=== PATIENT | female | born 1940 | race Caucasian/White ===

== ENCOUNTER 2021-01-10 23:28 | Inpatient (IN) | payer OTHER ==
[~2021-01-10] VITALS: Ht 152.4 cm; Wt 55.8 kg
--- NOTE | 2021-01-10 23:31 | NUR ---
PT AAOX1. ROSLYN SPEAKING BIBRA 39 FROM HOME FOR SOB X90 MIN WAXER. +COUGH. PLACED IN BED 8 ON HAT BRIM CURLER AND PULSE OX. PER ARRIVAL ON 12L NR. SAT HIGH 90'S. AWAITING ER MD FOR EVAL AND ORDERS.
--- NOTE | 2021-01-10 23:55 | NUR ---
ANDRESID SWABBED, SENT TO LAB.
--- NOTE | 2021-01-10 23:55 | NUR ---
xray at bedside
--- NOTE | 2021-01-10 23:56 | NUR ---
lab at bedside
[2021-01-11] MEDS ORDERED: HYDR-4077 PO (00:20)
[2021-01-11] MEDS ORDERED: MEMA21CA2 PO (00:20)
[2021-01-11] MEDS ORDERED: OLME20TA13 PO (00:20)
[2021-01-11] MEDS ORDERED: GABA-532 PO (00:20)
[2021-01-11] MEDS ORDERED: RISP0.2515 PO (00:20)
[2021-01-11] MEDS ORDERED: MECL-159 PO (00:20)
[2021-01-11] MEDS ORDERED: DILT180C93 PO (00:20)
[2021-01-11] MEDS ORDERED: CEFTRIAXONE 1GM BAG (ER ONLY) 1 GM/50 ML PIGGYBACK IV ONE (00:30)
[2021-01-11] MEDS ORDERED: ACETAMINOPHEN 650 MG/SUPP.RECT RC ONE ×2 (00:30→00:36)
[2021-01-11] MEDS ORDERED: AZITHROMYCIN 500 MG in IV D5W 250 ML IV ONE (00:30)
[2021-01-11] MEDS ORDERED: CEFTRIAXONE 1GM BAG (ER ONLY) 50 ML IV ONE (00:36)
[2021-01-11] MEDS ORDERED: AZITHROMYCIN 500 MG VIAL ONE (00:37)
[2021-01-11 00:40] LABS: BASOPHILS % (AUTO) 0.7 % (0.0-2.0); EOSINOPHILS % (AUTO) 1.5 % (0.0-6.0); HEMATOCRIT 41 % (33-45); HEMOGLOBIN 13.2 g/dL (11.5-14.8); MEAN CORPUSCULAR HGB CONC 32 g/dl (31.0-36.0); MEAN CORPUSCULAR VOLUME 91 fL (82-100); MONOCYTES # (AUTO) 0.7 K/uL (0.1-1.30); MONOCYTES % (AUTO) 13.7 % (2.0-12.0); NEUTROPHILS # (AUTO) 3.1 K/uL (1.8-8.9); NEUTROPHILS % (AUTO) 63.1 % (43.0-81.0); PLATELET COUNT (AUTO) 269 K/uL (150-450); RED BLOOD CELL COUNT(AUTO) 4.47 MIL/uL (4.0-5.2); WHITE BLOOD COUNT (AUTO) 4.9 K/uL (4.3-11.0)
[2021-01-11 01:05] LABS: ALANINE AMINOTRANSFERASE 18 U/L (12-78); ALBUMIN 3.6 g/dL (3.4-5.0); ALKALINE PHOSPHATASE 71 U/L (46-116); ASPARTATE AMINOTRANSFERASE 18 U/L (15-37); BILIRUBIN,DIRECT 0.1 mg/dL (0.0-0.2); BILIRUBIN,TOTAL 0.5 mg/dL (0.2-1.0); CALCIUM, SERUM 9.1 mg/dL (8.5-10.1); CARBON DIOXIDE 26 mmol/L (21-32); CHLORIDE 104 mmol/L (98-107); CREATININE 1.2 mg/dL (0.6-1.3); GLUCOSE 109 mg/dL (74-106); POTASSIUM 3.5 mmol/L (3.5-5.1); SODIUM SERUM 139 mmol/L (136-145); UREA NITROGEN, BLOOD 23 mg/dL (7-18)
[2021-01-11 01:31] LABS: BILIRUBIN,URINE SMALL (NEGATIVE); COLOR,URINE YELLOW (YELLOW); LEUKOCYTE ESTERASE ,URINE MODERATE (NEGATIVE); NITRITE, URINE NEGATIVE (NEGATIVE); PH,URINE 5.5 (5.0-8.0); PROTEIN,URINE 30 mg/dl (NEGATIVE); UGLUCOSE NEGATIVE (NEGATIVE); UROBILINOGEN,URINE 0.2 EU/dL (0.2)
--- NOTE | 2021-01-11 01:41 | NUR ---
PT PLACED BACK ON NR. SAAT 90'S.
[2021-01-11] MEDS ORDERED: methylPREDNISolone SOD SUCC 125 MG/2ML VIAL ONE (02:08)
--- NOTE | 2021-01-11 02:09 | NUR ---
CALLED RT FOR BREATHING TREATMENT.
[2021-01-11] MEDS ORDERED: ALBUTEROL FS 2.5 MG/0.5 ML VIAL.NEB ONE (02:14)
[2021-01-11] MEDS ORDERED: methylPREDNISolone SOD SUCC 125 MG/2ML VIAL IV ONE (02:30)
[2021-01-11] MEDS ORDERED: ALBUTEROL FS 2.5 MG/0.5 ML VIAL.NEB NEB ONE (02:30)
--- NOTE | 2021-01-11 04:06 | NUR ---
PANEL PAGED PER DR HAND.
[2021-01-11] MEDS ORDERED: ENOXAPARIN SODIUM 40 MG/0.4 ML DISP.SYRIN SQ SCH (05:00)
[2021-01-11] MEDS ORDERED: HYDROCODONE/APAP 5/325MG TABLET PO PRN (05:00)
[2021-01-11] MEDS ORDERED: ACETAMINOPHEN 325 MG TABLET PO PRN (05:00)
[2021-01-11] MEDS ORDERED: Z GUARD REMEDY 2 OZ OINT TP PRN (05:00)
[2021-01-11] MEDS ORDERED: ZOLPIDEM TARTRATE 5 MG TABLET PO PRN (05:00)
[2021-01-11] MEDS ORDERED: MAGNESIUM HYDROXIDE 30 ML UDC PO PRN (05:00)
[2021-01-11] MEDS ORDERED: ONDANSETRON HCL/PF 4 MG/2 ML VIAL IVP PRN (05:00)
[2021-01-11] MEDS ORDERED: MAG HYDROX/AL HYDROX/SIMETH 30 ML UDC PO PRN (05:00)
[2021-01-11] MEDS ORDERED: PIPERACILLIN /TAZOBACTAM 3.375 G in IV D5W 50 ML IV SCH (06:00)
[2021-01-11 06:16] LABS: BACTERIA,URINE Many /HPF (None Seen); RBC,URINE 0-2 /HPF (0-2); SQUAMOUS EPITHELIAL CELL,UR Few /HPF (None Seen); WBC,URINE TOO NUMEROUS TO COUN /HPF (0-3)
--- NOTE | 2021-01-11 06:43 | NUR ---
PT RESTING COMFORTABLY. VSS.
--- NOTE | 2021-01-11 07:10 | NUR ---
RECEIVED REPORT FROM KASEY BRIONES FOR ALEX. PT IS AAOX1, ON NON RB AT 15 LPM, V/S STABLE, KEPT RESTED AND COMFORTABLE. WILL CONTINUE TO MONITOR.
--- NOTE | 2021-01-11 07:22 | NUR ---
PT SWITCHED TO SIMPLE MASK AT 8LPM. O2 SAT AT 97%.
[2021-01-11] MEDS ORDERED: PIPERACILLIN /TAZOBACTAM 3.375 G VIAL IV ONE (07:30)
[2021-01-11] MEDS ORDERED: PANTOPRAZOLE 40 MG TABLET.DR PO SCH (07:30)
--- NOTE | 2021-01-11 07:30 | NUR ---
FIRESTOP/CONTAINMENT WORKER NOTES RECEIVED PT FROM ER, DX UTI BY DR. JOVON AMBRIZ, AO X 1, CONFUSED FORGETFUL, FOLLOWS SIMPLE COMMANDS, UNABLE TO EXPRESS SELF COMPLETELY, ON 8L O2 SIMPLE MASK, O2 SAT 97-98%, SINUS RHYTHM 92 HR. DENIES CHEST DISCOMFORT, IV ACCESS ON RT AC 20G, FLUSHES WELL, SITE CLEAR. SKIN INTACT. UNIT ORIENTATION DONE, UNABLE TO UNDERSTAND, NEEDS CONSTANT COACHINGS, BED LOW LOCKED, SR UP X 2, CALL LIGHT WITHIN REACH. WILL CONT TO MONITOR.
--- NOTE | 2021-01-11 07:55 | NUR ---
REPORT GIVEN TO KASEY LOBO FOR ALEX.
[2021-01-11] MEDS ORDERED: PIPERACILLIN /TAZOBACTAM 3.375 G in IV D5W 50 ML IV ONE (08:00)
[2021-01-11 08:30] VITALS: BP 126/83
[2021-01-11] MEDS: ENOXAPARIN SODIUM 30 MG/0.3 ML DISP.SYRIN SQ SCH (09:33)
[2021-01-11] MEDS: IV NS 0.9% 1,000 ML IV PRN (09:33)
[2021-01-11] MEDS ORDERED: DILTIAZEM HCL CD 180 MG PO SCH (10:00)
[2021-01-11] MEDS ORDERED: LOSARTAN POTASSIUM 50 MG TABLET PO SCH (10:00)
--- NOTE | 2021-01-11 10:33 | NUR ---
GAUGE AND WEIGH MACHINE ADJUSTER NOTES DR. ALLEN NOTIFIED THAT PT'S GRAND DAUGHTER WISHES TO TALK TO HER.
[2021-01-11] MEDS: VANCOMYCIN 0.75 GM in IV D5W 250 ML IV SCH (11:51)
[2021-01-11 12:00] VITALS: BP 130/81
--- NOTE | 2021-01-11 13:51 | NUR ---
RN NOTES RECEIVED A CALL FROM LALA GRAND DAUGHTER, STATED THAT SHE TALKED TO HER DAD AND THEY AGREED THAT PATIENT TO BE DNR/DNI. ALSO THEY INFORMED CASE MANAGMENT WELL DR ALLEN NOTIFIED
--- NOTE | 2021-01-11 15:10 | NUR ---
RN NOTES DR. ALLEN NOTIFIED, PATIENT KEEPS ON REMOVING MASK AND TRYING TO PULL IV. SOFT WRIST RESTRAINTS ORDERED. WILL CHECK Q 2 HOURS.
[2021-01-11 16:00] VITALS: BP 125/69
--- NOTE | 2021-01-11 18:31 | NUR ---
OPERATING ROOM NURSE CLOSING NOTES PT IN BED, RESTING, AO X 1, CONFUSED FORGETFUL, FOLLOWS SIMPLE COMMANDS, UNABLE TO EXPRESS SELF COMPLETELY, ON 8L O2 SIMPLE MASK, O2 SAT 97-98%, AFIB HR 110s-120s, AWARE. DENIES CHEST DISCOMFORT, IV ACCESS ON RT AC 20G, WITH NS AT 75 ML/HR, SITE CLEAR. PUREED DIET, FOR SWALLOW EVAL, REFUSE TO EAT. ECHAVARRIA CATH IN PLACE, TEA COLORED URINE, 1L OUTPUT, NEEDS CONSTANT COACHING, BED LOW LOCKED, SR UP X 2, CALL LIGHT WITHIN REACH. WILL ENDORSE TO NEXT SHIFT FOR ALEX. Addendum: 01/11/21 at 1837 by SHAINA DAS RN ADDENDUM: RESTRAINTS RELEASED AND CHECKED FOR CIRCULATION Q 2 HOURS. TURNED AND REPOSITIONED Q 2 HOURS. PM CARE DONE EARLIER.
--- NOTE | 2021-01-11 19:51 | NUR ---
RN NOTE RECEIVED PATIENT IN BED, AWAKE, RESPONSIVE. AOX1. BREATHING EVEN AND UNLABORED AT THIS TIME. NOTED TO BE ON SIMPLE FACE MASK AT 8L/MIN SATURATING AT 95 PERCENT. PATIENT ON TELEMETRY MONITORING WITH HR OF 130'S. NOTED WITH RIGHT FOREARM 20G, RUNNING NS AT 75 CC/HR. NO INFILTRATION NOTED. NO BLEEDING. NOTED WITH BILATERAL SOFT WRIST RESTRAINTS. CAPILLARY REFILL WNL. NOTED WITH ECHAVARRIA CATHETER. NO BLEEDING NOTED DRAINING YELLOW URINE. NO HEMATURIA NOTED. BED LOW, IN LOCKED POSITION. CALL LIGHT WITHIN REACH.
[2021-01-11] MEDS: PIPERACILLIN /TAZOBACTAM 3.375 G in IV D5W 100 ML IV SCH (20:27)
[2021-01-12] VITALS: BP 137/90
[2021-01-12 04:00] VITALS: BP 145/103
[2021-01-12] MEDS: IV NS 0.9% 1,000 ML IV PRN (05:28)
[2021-01-12 06:53] LABS: BASOPHILS % (AUTO) 0.1 % (0.0-2.0); HEMATOCRIT 39 % (33-45); HEMOGLOBIN 13.2 g/dL (11.5-14.8); LYMPHOCYTES # (AUTO) 0.5 K/uL (0.8-4.8); MEAN CORPUSCULAR HGB CONC 34 g/dl (31.0-36.0); MEAN CORPUSCULAR VOLUME 89 fL (82-100); MONOCYTES # (AUTO) 0.8 K/uL (0.1-1.30); MONOCYTES % (AUTO) 6.9 % (2.0-12.0); NEUTROPHILS # (AUTO) 10.2 K/uL (1.8-8.9); PLATELET COUNT (AUTO) 326 K/uL (150-450); RED BLOOD CELL COUNT(AUTO) 4.41 MIL/uL (4.0-5.2); WHITE BLOOD COUNT (AUTO) 11.5 K/uL (4.3-11.0)
--- NOTE | 2021-01-12 07:30 | NUR ---
COST ESTIMATOR AM NOTES RECEIVED PT IN BED, OPENS EYES, AO X 1, CONFUSED FORGETFUL, FOLLOWS SIMPLE COMMANDS, UNABLE TO EXPRESS SELF COMPLETELY, ON 8L O2 SIMPLE MASK, O2 SAT 95%, AFIB CONTR HR 88. DENIES CHEST DISCOMFORT, IV ACCESS ON RT AC 20G, WITH NS AT 75 ML/HR INFUSING WELL, SITE CLEAR. ECHAVARRIA CAT IN PLACE, DRAINING YELLOW COLORED URINE. SKIN INTACT. PUREED DIET, POC DISCUSSED, UNABLE TO UNDERSTAND, NEEDS CONSTANT COACHINGS, BILAT SOFTWRIST RESTRAIN IN PLACE, RELEASED, CHECKED FOR CIRCULATION THEN Q 2 HOURS. BED LOW LOCKED, SR UP X 2, CALL LIGHT WITHIN REACH. WILL CONT TO MONITOR. PER SHOE SHANKER, REFUSED ORAL INTAKE.
[2021-01-12 07:48] LABS: CALCIUM, SERUM 9.3 mg/dL (8.5-10.1); PHOSPHORUS 3.6 mg/dL (2.5-4.9); POTASSIUM 4.4 mmol/L (3.5-5.1)
[2021-01-12 07:49] LABS: THYROID STIMULATING HORMONE 0.444 uIU/mL (0.358-3.74)
[2021-01-12 08:01] VITALS: BP 102/66
[2021-01-12] MEDS: PANTOPRAZOLE 40 MG VIAL IV SCH (08:27)
[2021-01-12] MEDS: PIPERACILLIN /TAZOBACTAM 3.375 G in IV D5W 100 ML IV SCH ×2 (08:27→20:17)
[2021-01-12] MEDS: ENOXAPARIN SODIUM 30 MG/0.3 ML DISP.SYRIN SQ SCH (08:28)
--- NOTE | 2021-01-12 09:30 | NUR ---
RN NOTES DUE MEDS GIVEN. PATIENT PLACED NOW ON 6L O2 NASAL CANULA. TOLERATING WELL. O2 SAT AT 96%
[2021-01-12] MEDS: VANCOMYCIN 0.75 GM in IV D5W 250 ML IV SCH (11:41)
[2021-01-12] MEDS: DIGOXIN INJ 0.5 MG/2 ML AMPUL IV SCH ×2 (11:42→17:34)
[2021-01-12 12:00] VITALS: BP 128/90
[2021-01-12 16:00] VITALS: BP 150/90
--- NOTE | 2021-01-12 18:26 | NUR ---
RELIABILITY TECHNOLOGIST CLOSING NOTES PT IN BED, RESTING, AO X 3, [place] SPEAKING. ON 4L NASAL CANULA, O2 SAT 95-98%, SINUS RHYTHM DENIES CHEST DISCOMFORT, IV ACCESS ON RT AC 18G AND LFA 20G BOTH FLUSHES WELL, BOTH SITES CLEAR. ECHAVARRIA CATH IN PLACE, ADEQUATE URINE OUTPUT TOTAL 600 ML. BED LOW LOCKED, SR UP X 2, CALL LIGHT WITHIN REACH. ALL NEEDS MET. WILL ENDORSE TO NEXT SHIFT FOR ALEX. Addendum: 01/12/21 at 1829 by SHAINA DAS RN CORRECTION: DISREGARD THIS DOCUMENTATION INTENDED FOR ANOTHER PATIENT.
--- NOTE | 2021-01-12 18:30 | NUR ---
STRAIGHTEDGE MAN CLOSING NOTES PT IN BED, RESTING, AO X 1, CONFUSED FORGETFUL, FOLLOWS SIMPLE COMMANDS, UNABLE TO EXPRESS SELF COMPLETELY, ON 8L O2 SIMPLE MASK, O2 SAT 97-98%, AFIB HR 110s-120s, AWARE. DENIES CHEST DISCOMFORT, IV ACCESS ON RT AC 20G, WITH NS AT 75 ML/HR, SITE CLEAR. PUREED DIET, REFUSE TO EAT. ECHAVARRIA CATH IN PLACE, TEA COLORED URINE, 850 ML OUTPUT, NEEDS CONSTANT COACHING, BED LOW LOCKED, SR UP X 2, CALL LIGHT WITHIN REACH. WILL ENDORSE TO NEXT SHIFT FOR ALEX. RESTRAINTS RELEASED AND CHECKED FOR CIRCULATION Q 2 HOURS. TURNED AND REPOSITIONED Q 2 HOURS. PM CARE DONE EARLIER. ALL NEEDS MET.
--- NOTE | 2021-01-12 19:10 | NUR ---
RN NOTES RECEIVED REPORT FROM MORNING NURSE. PATIENT A/O X1 ABLE TO FOLLOW SIMPLE COMMAND. NO SOB NO DISTRESS NOTED. WITH IV ACCESS AT RFA G# 20 PATENT FLUSHES WELL, WITH ONGOING IVF PNS @75 CC HOUR. WITH OXYGEN INHALATION AT 6LPM VIA NC TOLERATING WELL SATING 94%. WITH ECHAVARRIA CATHETER CONNECTED TO URINE BAG DRAINING YELLOWISH URINE. WITH BILATERAL SOFT RESTRAINTS IN PLACE. ALL SAFETY MEASURES IN PLACE AT ALL TIMES. HOB ELEVATED. BED ON LOWEST POSITION AND LOCKED. CALL LIGHT WITHIN REACH. WILL CONTINUE TO MONITOR
[2021-01-12 20:00] VITALS: BP 172/93
--- NOTE | 2021-01-12 21:00 | NUR ---
RN NOTES BP 172/[address] LEVY WAITING FOR HIS CALL BACK. PATIENT COMFORTABLE IN BED. WILL CONTINUE TO MONITOR THE PATIENT
--- NOTE | 2021-01-12 21:30 | NUR ---
RN NOTES DR LEVY ORDERED LOSARTAN 50 MG NOW THEN 50 MG QD NOTED AND CARRIED OUT
--- NOTE | 2021-01-12 22:15 | NUR ---
RN NOTES CHASTITYRTLEXUS GIVEN, REPEAT BP 153/84 HR 130'S. WILL CONTINUE TO MONITOR THE PATIENT
[2021-01-12] MEDS ORDERED: LOSARTAN POTASSIUM 50 MG TABLET PO SCH (22:30)
[2021-01-13] VITALS: BP 159/92
[2021-01-13] MEDS: DIGOXIN INJ 0.5 MG/2 ML AMPUL IV SCH (00:13)
--- NOTE | 2021-01-13 00:20 | NUR ---
RN NOTES NOTED PATIENT HR 140'S, O2 SAT 88 PLACE PATIENT IN NON REBREATER MASK BP 153/90. PAGED DR JOVON LEVY.
--- NOTE | 2021-01-13 00:30 | NUR ---
RN NOTES DR LEVY ORDERED TO START AMIODARONE DRIP 1MG/MIN X 6 HOURS NO LOADING DOSE.
[2021-01-13] MEDS ORDERED: AMIODARONE 150 MG/3 ML VIAL IV ONE ×2 (00:35→00:37)
[2021-01-13] MEDS: AMIODARONE 450 MG in IV D5W 241 ML IV PRN ×2 (00:49→08:13)
--- NOTE | 2021-01-13 02:30 | NUR ---
RN NOTES PATIENT BP 150/89 HR99 O2 SAT 97% PATIENT ASLEEP NO DISTRESS. WILL CONTINUE TO MONITOR.
[2021-01-13] MEDS: IV NS 0.9% 1,000 ML IV PRN ×2 (02:41→20:15)
--- NOTE | 2021-01-13 03:00 | NUR ---
RN NOTES PATIENT BP 169/92 HR 120'S-130'S O2 SAT 93% ON NON REBREATHER MASK. PATIENT AWAKE. STILL ON AMIODARONE DRIP 1MG/MIN. WILL CONTINUE TO MONITOR CLOSELY.
[2021-01-13 04:00] VITALS: BP 169/95
--- NOTE | 2021-01-13 04:00 | NUR ---
RN NOTES PATIENT BP 170/95, HR 120, O2 SAT 94%. PATIENT COMFORTABLE IN BED. WILL CONTINUE TO MONITOR THE PATIENT
--- NOTE | 2021-01-13 05:00 | NUR ---
RN NOTES PATIENT BP 169/95 HR 129 O2 SAT 93% STILL ON NON REBREATHER. WILL CONTINUE TO MONITOR.
--- NOTE | 2021-01-13 05:51 | NUR ---
RN NOTES RELAYED DR JOVON LEVY PATIENTS HR 129 AFIB AND BP 159/100, ASKED IF PATIENT CAN HAVE PAIN MEDICATION IV PATIENT CANNOT TOLERATE PO MEDS. STILL WAITING FOR CALL BACK. WILL CONTINUE TO MONITOR THE PATIENT CLOSELY.
[2021-01-13 07:20] LABS: CALCIUM, SERUM 9.3 mg/dL (8.5-10.1); CREATININE 1.1 mg/dL (0.6-1.3); POTASSIUM 3.9 mmol/L (3.5-5.1)
--- NOTE | 2021-01-13 07:59 | NUR ---
RN NOTES RECEIVED IN BED A/O X1 ABLE TO FOLLOW SIMPLE COMMAND. NO SOB NO DISTRESS NOTED BREATHING EVEN AND UNLABORED, ON 15L/MIN NON REBREATHER MASK TOLERATING WELL O2 SAT 96%, WITH IV ACCESS AT RFA G#20 PATENT AND FLUSHING WELL, WITH ONGOING IVF NS @75 ML HOUR. WITH ECHAVARRIA CATHETER BELOW THE PT, CONNECTED TO URINE BAG DRAINING YELLOWISH URINE. WITH BILATERAL SOFT RESTRAINTS IN PLACE. ALL SAFETY MEASURES IN PLACE AT ALL TIMES. HOB ELEVATED. BED ON LOWEST POSITION AND LOCKED. CALL LIGHT WITHIN REACH. WILL CONTINUE TO MONITOR
[2021-01-13 08:00] VITALS: BP 150/116
[2021-01-13] MEDS: PANTOPRAZOLE 40 MG VIAL IV SCH (08:56)
[2021-01-13] MEDS: PIPERACILLIN /TAZOBACTAM 3.375 G in IV D5W 100 ML IV SCH ×2 (08:56→20:12)
[2021-01-13] MEDS: ENOXAPARIN SODIUM 30 MG/0.3 ML DISP.SYRIN SQ SCH (08:57)
[2021-01-13] MEDS ORDERED: LOSARTAN POTASSIUM 50 MG TABLET PO SCH (09:00)
[2021-01-13] MEDS: VANCOMYCIN 0.75 GM in IV D5W 250 ML IV SCH (11:11)
[2021-01-13 12:00] VITALS: BP 131/95
[2021-01-13] MEDS: METOPROLOL TARTRATE 50 MG TABLET PO SCH ×2 (12:00→18:00)
--- NOTE | 2021-01-13 12:00 | NUR ---
NURSES NOTES LOPRESSOR AND DIGOXIN NOT GIVEN, PT REFUSES TO TAKE ANYTHING BY MOUTH. MD MADE AWARE, FAMILY MADE AWARE.
[2021-01-13] MEDS ORDERED: DIGOXIN 0.25 MG TABLET PO SCH (13:00)
--- NOTE | 2021-01-13 13:33 | NUR ---
per valentín caraballo pt. covid negative pcr
[2021-01-13] MEDS ORDERED: LEVOFLOXACIN 500 MG /D5W 100ML 500 MG in PREMIX 1 EA IV ONE (14:00)
[2021-01-13 16:00] VITALS: BP 165/117
--- NOTE | 2021-01-13 18:11 | NUR ---
NURSES NOTES LOPRESSOR GIVEN, PT REFUSES TO TAKE ANYTHING BY MOUTH. MD MADE AWARE, FAMILY MADE AWARE. BLOOD PRESSURE 86/61 HR 100
--- NOTE | 2021-01-13 18:38 | NUR ---
RN NOTES RECEIVED IN BED A/O X1 ABLE TO FOLLOW SIMPLE COMMAND. NO SOB NO DISTRESS NOTED BREATHING EVEN AND UNLABORED, ON 15L/MIN NON REBREATHER MASK TOLERATING WELL O2 SAT 96%, WITH IV ACCESS AT RFA G#20 AND LEFT FA #22G PATENT AND FLUSHING WELL, WITH ONGOING IVF NS @75 ML HOUR. WITH ECHAVARRIA CATHETER BELOW THE PT 500 ML OUTPUT CONNECTED TO URINE BAG DRAINING YELLOWISH URINE. PT DOES NOT WANT TO DRINK OR EAT ANYTHING, REFUSED PO MEDICATIONS DOCTOR NOTIFIED, BILATERAL SOFT RESTRAINTS IN PLACE. ALL SAFETY MEASURES IN PLACE HOB ELEVATED. BED ON LOWEST POSITION AND LOCKED. CALL LIGHT WITHIN REACH. WILL ENDORSE TO TRUCK LOADER OVERHEAD CRANE RN
--- NOTE | 2021-01-13 19:30 | NUR ---
RN NOTE RECEIVED PATIENT IN BED, AWAKE, RESPONSIVE. MOUTHS WORDS. NOTED WITH LABORED BREATHING. NOTED TO BE ON NON-REBREATHER MASK ON 15L/MIN, TOLERATING, SATURATION OF 98 PERCENT. HOB ELEVATED 40 DEGREES. PATIENT ON TELE-MONITORING, A-FIB WITH HR OF 115 BPM. NOTED WITH RIGHT FOREARM 20G, AND LEFT WRIST 22G. PATIENT CURRENTLY RUNNING NS AT 75 ML, AMIODARONE AT 16.6 ML/HR. NO INFILTRATION NOTED. PATIENT ON BILATERAL SOFT WRIST RESTRAINTS. CAPILLARY REFILL WNL. NOTED WITH ECHAVARRIA CATHETER. NO BLEEDING NOTED. BED LOW, IN LOCKED POSITION. WILL CONTINUE TO MONITOR. CALL LIGHT WITHIN REACH.
[2021-01-13 20:00] VITALS: BP 146/92
[2021-01-13] MEDS ORDERED: GENTAMICIN 80 MG/2 ML VIAL ONE (22:07)
[2021-01-13] MEDS ORDERED: DOXYCYCLINE 100 MG VIAL ONE (22:33)
[2021-01-13] MEDS: DOXYCYCLINE 100 MG in IV D5W 100 ML IV SCH (22:49)
[2021-01-13] MEDS ORDERED: GENTAMICIN 80 MG in IV D5W 50 ML IV ONE (23:00)
[2021-01-14] VITALS (7 sets, daily range): BP systolic 111–173; BP diastolic 65–111
[2021-01-14] MEDS: AMIODARONE 450 MG in IV D5W 241 ML IV PRN (00:42)
[2021-01-14] MEDS: METOPROLOL TARTRATE 50 MG TABLET PO SCH ×5 (01:25→17:18)
--- NOTE | 2021-01-14 03:46 | NUR ---
RN NOTE LEFT WRIST 22G PULLED OUT. CANNULA INTACT. PRESSURE APPLIED AT SITE. REINSERTED 24G PERIPHERAL IV ON LEFT FOREARM. PATENT WITH GOOD BLOOD RETURN.
--- NOTE | 2021-01-14 04:10 | NUR ---
RN NOTE PATIENT NOTED WITH ELEVATED BLOOD PRESSURE 173/111, HR OF [address] PRETTY. AWAITING ORDER. HOB ELEVATED. WILL CONTINUE TO MONITOR.
--- NOTE | 2021-01-14 04:56 | NUR ---
RN NOTE PER MD ORDER, GIVE HYDRALAZINE 10 MG IV Q8H FOR SBP GREATER THAN 160 mmHg. Rechecked patients blood pressure and as follows, 128/89, HR of 88. Patient sleeping at this time.
[2021-01-14] MEDS ORDERED: hydrALAZINE HCL IV 20 MG VIAL IV PRN (05:00)
--- NOTE | 2021-01-14 05:26 | NUR ---
RN NOTE PATIENT IS AROUSABLE TO TOUCH BUT VERY LETHARGIC. UNABLE TO TAKE PO MEDICATIONS. , JOVON, INFORMED. WILL CONTINUE TO MONITOR.
[2021-01-14 06:12] LABS: BASOPHILS % (AUTO) 0.1 % (0.0-2.0); HEMATOCRIT 41 % (33-45); HEMOGLOBIN 13.2 g/dL (11.5-14.8); LYMPHOCYTES # (AUTO) 0.6 K/uL (0.8-4.8); LYMPHOCYTES % (AUTO) 5.6 % (20.0-44.0); MEAN CORPUSCULAR HGB CONC 33 g/dl (31.0-36.0); MEAN CORPUSCULAR VOLUME 91 fL (82-100); MONOCYTES # (AUTO) 0.9 K/uL (0.1-1.30); MONOCYTES % (AUTO) 9.1 % (2.0-12.0); NEUTROPHILS # (AUTO) 8.3 K/uL (1.8-8.9); NEUTROPHILS % (AUTO) 85.2 % (43.0-81.0); PLATELET COUNT (AUTO) 266 K/uL (150-450); RED BLOOD CELL COUNT(AUTO) 4.44 MIL/uL (4.0-5.2); WHITE BLOOD COUNT (AUTO) 9.8 K/uL (4.3-11.0)
[2021-01-14 06:31] LABS: CALCIUM, SERUM 9.1 mg/dL (8.5-10.1); CREATININE 1.2 mg/dL (0.6-1.3); POTASSIUM 3.5 mmol/L (3.5-5.1)
--- NOTE | 2021-01-14 07:00 | NUR ---
RN NOTE RECEIVED PATIENT ON LETHARGIC , DOES NOT FOLLOW COMMAND , ON NON-REBREATHER MASK ON 15L/MIN, O2 SAT WNL, HOB ELEVATED , PATIENT ON TELE-MONITORING, A-FIB HR IN 70'S , NOTED WITH RIGHT FOREARM 20G, AND LEFT WRIST 22G. PATIENT CURRENTLY RUNNING NS AT 75 ML, AMIODARONE AT 16.6 ML/HR. NO INFILTRATION NOTED. PATIENT ON BILATERAL SOFT WRIST RESTRAINTS FOR HER SAFETY, CAPILLARY REFILL WNL. NOTED WITH ECHAVARRIA CATHETER DRAINING , BED LOW AND IN LOCKED POSITION. CALL LIGHT WITHIN EASY REACH , WILL CONTINUE TO MONITOR.
[2021-01-14] MEDS: PANTOPRAZOLE 40 MG/PACK PACK PO SCH (08:26)
[2021-01-14] MEDS: DOXYCYCLINE 100 MG in IV D5W 100 ML IV SCH (08:27)
[2021-01-14] MEDS: ENOXAPARIN SODIUM 30 MG/0.3 ML DISP.SYRIN SQ SCH (08:28)
[2021-01-14] MEDS: IV D5/0.45 NACL 1,000 ML IV PRN (09:27)
[2021-01-14] MEDS ORDERED: CLINDAMYCIN IV RTU IN D5W 900 MG/50 ML PIGGYBACK IV SCH (12:00)
[2021-01-14 12:01] LABS: ABG BASE EXCESS 1.8 mmol/L; ABG PCO2 42.9 mmHg (35.0-45.0); ABG PH 7.412 (7.350-7.450); ABG PO2 81.8 mmHg (75.0-100.0); AaDO2 443.6 mmHg; COHb 0.4 % (0.5-1.5); MetHb 0.2 % (0.0-1.5); O2Hb 95.4 % (94.0-97.0); SITE, ABG Right Radial; VENT MODE, BG N/B MASK
[2021-01-14] MEDS: CLINDAMYCIN 900 MG in IV D5W 50 ML IV SCH ×2 (12:09→21:19)
[2021-01-14] MEDS ORDERED: DIGOXIN INJ 0.5 MG/2 ML AMPUL IV SCH (13:00)
[2021-01-14] MEDS ORDERED: LEVOFLOXACIN 250 MG /D5W 50 ML 250 MG in PREMIX 1 EA IV SCH (14:00)
--- NOTE | 2021-01-14 17:30 | NUR ---
RN NOTES UNABLE TO GIVE PO MEDS , PT IS LETHARGIC AND DOES NOT FOLLOW COMMAND, NOITFED, FAMILY REFUSED NGT PLACEMENT.
--- NOTE | 2021-01-14 18:48 | NUR ---
RN NOTES NO SIGNIFCANT CHANGES NOTED ON THIS SHIFT, PT REMAINS LETHARGIC , ON NONREBREATHER MASK , O2 SAT WNL, ON TELE A.FIB HR IN 80'S , IVF RUNNING AT 75CC/HR , SR UP x3. CALL LIGHT WITHIN EASY REACH, WILL ENDORSE TO CONDUCTOR PULLMAN NURSE FOR CONTINUITY OF CARE .
--- NOTE | 2021-01-14 19:30 | NUR ---
RN OPENING NOTE RECEIVED PATIENT IN BED.PATIENT IS VERY LETHARGIC. ON OXYGEN 15L/MIN VIA NONREBREATHER. PATIENT IS TACHYPNIC. NO S/S PAIN NOTED. TELE MONITOR READS CONTROLLED AFIB HR 80S. IV ACCESS IN LFA#24 RUNNING AMNIO @5MG. AND D51/2NS@75ML/HR. BILATERAL SOFT WRIST RESTRAINTS GOOD CAP REFILL. ECHAVARRIA CATHETER IS PRESENT, DRAINING TO GRAVITY, URINE IOS YELLOW. BED IS LOW AND LOCKED, HOB ELEVATED IN HIGH FOWLERS, SIDE RIALS UPX2, CALL LIGHT WITHIN REACH.
[2021-01-14] MEDS ORDERED: GENTAMICIN 80 MG in IV D5W 50 ML IV SCH (20:00)
[2021-01-14] MEDS ORDERED: GENTAMICIN 80 MG/2 ML VIAL ONE (20:30)
[2021-01-15] VITALS: BP 147/89
[2021-01-15] MEDS: IV D5/0.45 NACL 1,000 ML IV PRN (00:24)
[2021-01-15 04:00] VITALS: BP 154/87
[2021-01-15] MEDS: METOPROLOL TARTRATE 50 MG TABLET PO SCH ×2 (06:00)
[2021-01-15] MEDS: CLINDAMYCIN 900 MG in IV D5W 50 ML IV SCH (06:24)
--- NOTE | 2021-01-15 07:30 | NUR ---
ONLINE CONTENT COORDINATOR AM NOTES RECEIVED PT IN BED, OPENS EYES, AO X 1, CONFUSED FORGETFUL, FOLLOWS SIMPLE COMMANDS, UNABLE TO EXPRESS SELF COMPLETELY, ON 15L NRM, O2 SAT 95%, AFIB CONTR HR 85. DENIES CHEST DISCOMFORT, IV ACCESS ON RT AC 20G, WITH NS AT 75 ML/HR INFUSING WELL, SITE CLEAR. ECHAVARRIA CATH IN PLACE, DRAINING YELLOW COLORED URINE. SKIN INTACT. PUREED DIET, BUT PER AUDIO VISUAL MANAGER VERY POOR INTAKE. AND CONSIDERS NGT PLACEMENT. POC DISCUSSED, UNABLE TO UNDERSTAND, NEEDS CONSTANT COACHINGS, BILAT SOFT WRIST RESTRAINTS IN PLACE, RELEASED, CHECKED FOR CIRCULATION THEN Q 2 HOURS. BED LOW LOCKED, SR UP X 2, CALL LIGHT WITHIN REACH. WILL CONT TO MONITOR. PER AUDIO VISUAL MANAGER, REFUSED ORAL INTAKE.
--- NOTE | 2021-01-15 07:46 | NUR ---
RN NOTE PATIENT RESTING IN BED. LETHARGIC, MUMMBLING. REMAINS ON OXYGEN 15L/MIN VIA NONREBREATHER. NO RESP DISTRESS. NO PAIN. S/P AMNIO DRIP. CONTROLLED AFIB HR 90. LFA#24 D51/2NS@75ML/HR. BILATERAL SOFT WRIST RESTRAINTS MAINTAINED, CAP REFILL WNL. ECHAVARRIA CATHETER DRAINING TO GRAVITY.BED REMAINS LOW AND LOCKED, HOB ELEVATED IN HIGH FOWLERS, SIDE RIALS UPX2, CALL LIGHT WITHIN REACH. WILL ENDORSE TO ONCOMING SHIFT.
[2021-01-15 08:00] VITALS: BP 152/88
[2021-01-15 08:44] LABS: CALCIUM, SERUM 9.2 mg/dL (8.5-10.1); CREATININE 0.9 mg/dL (0.6-1.3); POTASSIUM 3.3 mmol/L (3.5-5.1)
[2021-01-15] MEDS: PANTOPRAZOLE 40 MG/PACK PACK PO SCH (09:00)
[2021-01-15] MEDS ORDERED: POTASSIUM CHLORIDE 20 MEQ POWDER PACKET PO SCH (09:30)
--- NOTE | 2021-01-15 09:30 | NUR ---
RN NOTE DUE MEDS ORAL UNABLE. PT VERY LETHARGIC.
[2021-01-15] MEDS: ENOXAPARIN SODIUM 30 MG/0.3 ML DISP.SYRIN SQ SCH (10:01)
--- NOTE | 2021-01-15 11:00 | NUR ---
RN NOTES UNSUCCESSFUL NGT PLACEMENT. AWARE
[2021-01-15 12:00] VITALS: BP 148/104
[2021-01-15] MEDS ORDERED: METOPROLOL TARTRATE 50 MG TABLET PO SCH (12:00)
--- NOTE | 2021-01-15 12:40 | NUR ---
RN NOTES 1225 - PATIENT FOUND PURPLE, NO HEART RATE, NO BP, GASPING FOR AIR ON NON REBREATHER MASK AT 15L. PATIENT IS DNR/DNI. NO RESUSCITATIVE MEASURES DONE. DR. LALA HSIEH WAS AT BED SIDE. 1223 - DR. ALEJANDRO LANE NOTIFIED. NURSING PHYSICIST [facility] NOTIFIED. 1228 - PATIENT'S NIECE NOTITIFED. INFORMED WE COULD KEEP THE REMAINS FOR HOURS AND WILL BE SENT TO THE [facility] [place]. PER GRAND DAUGHTER WILL GET MORTUARY 1240 - [facility] NOTIFIED. PATIENT NOT A DONOR CANDIDATE. REFERENCE # [id number] Addendum: 01/15/21 at 1248 by SHAINA DAS RN CORRECTION 1228 - DR. ALLEN NOTIFIED. PHYSICIST [facility] JOHN NOTIFIED
--- NOTE | 2021-01-15 15:48 | NUR ---
RN NOTES PATIENT REMAINS TRANSFERRED TO [facility] [place] [facility] [facility] BELONG[facility].
== END 2021-01-15 12:20 | DRG 871 ==
LOC: ER 23:34 → TELE1 01-11 05:22 → TELE-TD 01-13 00:05 → TELE1 01-14 17:14
PROVIDERS: ADMIT Internal Medicine; ATTEND Internal Medicine
DX: A41.9 Sepsis, unspecified organism (principal); G93.41 Metabolic encephalopathy; J96.01 Acute respiratory failure with hypoxia; N17.0 Acute kidney failure with tubular necrosis; J15.6 Pneumonia due to other Gram-negative bacteria; J44.0 Chronic obstructive pulmonary disease with (acute) lower respiratory infection; N39.0 Urinary tract infection, site not specified; J98.11 Atelectasis; J90 Pleural effusion, not elsewhere classified; Z16.24 Resistance to multiple antibiotics; G30.9 Alzheimer's disease, unspecified; B96.20 Unspecified Escherichia coli [E. coli] as the cause of diseases classified elsewhere; F02.80 Dementia in other diseases classified elsewhere, unspecified severity, without behavioral disturbance, psychotic disturbance, mood disturbance, and anxiety; Z20.822 Contact with and (suspected) exposure to COVID-19; Z79.899 Other long term (current) drug therapy; Z66 Do not resuscitate; I48.91 Unspecified atrial fibrillation; F29 Unspecified psychosis not due to a substance or known physiological condition; G62.9 Polyneuropathy, unspecified; I10 Essential (primary) hypertension; Z91.81 History of falling
CPT/HCPCS: 36415; 36600; 71045-TC; 80048-TC; 80076-TC; 80202-TC; 81001; 83605-TC; 83735-TC; 83880; 84100-TC; 84439-TC; 84443-TC; 84484-TC; 85025-TC; 85730-TC; 87040-TC; 87081-TC; 87086-TC; 87186-TC; 92526; 92611-TC; 93307-TC; 93970-TC; A4217; C9113; C9803; G0378; J0282; J0456; J0696; J1160; J1580; J1650; J2543; J2930; J3370; J3490; J7030; J7050; J7060; U0003